=== PATIENT | male | born 1995 | race Caucasian/White ===

== ENCOUNTER 2021-06-05 21:31 | Emergency (ER) | payer OTHER ==
[2021-06-06 00:12] LABS: HEMOGLOBIN 14.4 gm/dl (14.0-17.5); RED BLOOD COUNT 4.64 M/UL (4.20-5.50); WHITE BLOOD COUNT 8.3 K/UL (4.5-11.0)
[2021-06-06 00:48] LABS: BUN/CREATININE RATIO 16 (0-10)
== END 2021-06-06 01:35 | disposition home or self-care (01) ==
LOC: ER1 21:31
DX: R07.9 Chest pain, unspecified (principal); F17.290 Nicotine dependence, other tobacco product, uncomplicated
CPT/HCPCS: 71046; 80053; 82550; 82553; 83874; 84484; 85025; 99285